=== PATIENT | female | born 1975 | race Caucasian/White ===

== ENCOUNTER 2017-10-04 13:59 | Emergency (ER) | payer BC ==
[~2017-10-04] VITALS: Ht 170.2 cm; Wt 77.9 kg
[~2017-10-04 13:59] MED LIST: KLONOPIN0.5 M1 PO
[2017-10-04] MEDS ORDERED: FLEXERIL10 MG PO (16:42)
[2017-10-04 16:51] VITALS: BP 151/86
== END 2017-10-04 16:51 | disposition home or self-care (01) ==
LOC: EME 13:59
DX: R13.10 Dysphagia, unspecified (principal); M62.838 Other muscle spasm; R51 Headache; F17.200 Nicotine dependence, unspecified, uncomplicated
CPT/HCPCS: 70360; 99281; 99284